=== PATIENT | male | born 1960 | race Hispanic/Latino ===

== ENCOUNTER 2024-10-08 12:29 | Emergency (ER) | payer OTHER ==
[~2024-10-08] VITALS: Ht 375.9 cm; Wt 86.2 kg
[2024-10-08 13:00] VITALS: PULSE 93; RESP 16; TEMP 98.3
[2024-10-08 13:52] VITALS: BP 131/70; PULSE 75; RESP 18; TEMP 98.3; O2SAT 99
== END 2024-10-08 13:30 | disposition home or self-care (01) ==
LOC: FSED 12:51
DX: R42 Dizziness and giddiness (principal); I10 Essential (primary) hypertension; E11.9 Type 2 diabetes mellitus without complications
CPT/HCPCS: 70450